=== PATIENT | female | born 1960 | race Caucasian/White ===

== ENCOUNTER 2017-06-23 14:21 | Emergency (ER) | payer OTHER ==
[~2017-06-23] VITALS: Ht 157.5 cm; Wt 69.0 kg
[~2017-06-23 14:21] MED LIST: ALL220TA PO; DARV PO
[2017-06-23 14:29] VITALS: BP 147/66; PULSE 67; RESP 18; TEMP 97.6; O2SAT 99
--- NOTE | 2017-06-23 16:48 | RADRPT ---
EXAM DATE/TIME: 06/23/2017 15:50 [place] COMPARISON: No previous studies available for comparison. INDICATIONS : Left shoulder pain since falling 2 weeks ago. MEDICAL HISTORY : None. SURGICAL HISTORY : None. ENCOUNTER: Initial ACUITY: 2 weeks PAIN SCORE: 5/10 LOCATION: Left shoulder. FINDINGS: There is a mildly comminuted fracture of the greater tuberosity of the humeral head. Approximately 2 mm of superior displacement noted. Other bones of the left shoulder are intact. CONCLUSION: Mildly comminuted and minimally displaced greater tuberosity fracture. Marvin Hdez MD on June 23, 2017 at 16:46 Board Certified Radiologist. This report was verified electronically.
--- NOTE | 2017-06-23 17:07 | PD ---
HPI Chief Complaint: Musculoskeletal Complaint Time Seen by Provider: 15:12 Travel History International Travel<30 days: No Contact w/Intl Traveler<30days: No Traveled to known affect area: No History of Present Illness HPI 56-year-old right-hand dominant female presents to the ED for evaluation of left shoulder pain. Onset approximately 2 weeks ago after the patient fell on a slippery tile floor directly landing on the shoulder. She states that there was bruising and pain of the arm that is increasingly improved. 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 He endorses limited range of motion, states that she cannot raise the arm beyond shoulder level. She denies numbness, tingling, weakness of the arm. She's never had an injury to the area before. PFSH Past Medical History Diminished Hearing: No Social History Alcohol Use: Yes (2 DRINKS PER DAY) Tobacco Use: No Substance Use: No Allergies-Medications (Allergen,Severity, Reaction): Coded Allergies: cephalexin (Verified Allergy, Intermediate, RASH& FACIAL EDEMA, 06/23/17) Reported Meds & Prescriptions Reported Meds & Active Scripts Active Tramadol (Tramadol HCl) 50 Mg Tab 50 Mg PO Q6H PRN Ibuprofen 800 Mg Tab 800 Mg PO Q8H 7 Days Review of Systems Except as stated in HPI: all other systems reviewed are Neg Physical Exam Narrative GENERAL: Well-nourished, well-developed white female in no acute distress. SKIN: Focused skin assessment warm/dry. HEAD: Normocephalic. EYES: No scleral icterus. No injection or drainage. NECK: Supple, trachea midline. No JVD or lymphadenopathy. CARDIOVASCULAR: Regular rate and rhythm without murmurs, gallops, or rubs. RESPIRATORY: Breath sounds equal bilaterally. No accessory muscle use. GASTROINTESTINAL: Abdomen soft, non-tender, nondistended. MUSCULOSKELETAL: No cyanosis, or edema. Focused left upper extremity exam: 2+ radial pulse. Tender to palpation of the head of the humerus. No pain elicited with external rotation. Neurovascularly intact. BACK: Nontender without obvious deformity. No CVA tenderness. Data Data Last Documented VS Vital Signs Date Time Temp Pulse Resp B/P (MAP) Pulse Ox O2 Delivery O2 Flow Rate FiO2 06/23/17 14:29 97.6 67 18 147/66 (93) 99 Orders Orders Shoulder, Complete (>2vws) (06/23/17 15:11) Ice/Cold Pack (06/23/17 15:11) Support Splint (06/23/17 17:08) Ibuprofen (Motrin) (06/23/17 17:15) MDM Medical Decision Making Medical Screen Exam Complete: Yes Emergency Medical Condition: Yes Differential Diagnosis Contusion versus musculoskeletal pain versus rotator cuff injury versus fracture versus other Narrative Course 56-year-old right-hand dominant female presents to the ED for evaluation of left shoulder pain. Onset approximately 2 weeks ago after the patient fell on a slippery tile floor directly landing on the shoulder. She states that there was bruising and pain of the arm that has improved with time. 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 He endorses limited range of motion, states that she cannot raise the arm beyond shoulder level. She denies numbness, tingling, weakness of the arm. Vitals reviewed. Physical exam reveals a nontoxic-appearing white female in no acute distress. There is some bruising of the mid shaft of the humerus but the focus left upper extremity exam is otherwise unremarkable. X-ray reveals chip fracture of the greater tuberosity of the proximal humerus. I discussed the case with Dr. Pitt. We will put the patient a sling, provide her with a short course of anti-inflammatories and pain medications, recommend follow-up with the orthopedist this week. The patient indicated understanding of instructions and is agreeable with the care plan. Patient is stable and discharged home. Diagnosis Primary Impression: Fracture of greater tuberosity of left humerus Qualified Codes: S42.255A - Nondisplaced fracture of greater tuberosity of left humerus, initial encounter for closed fracture Referrals: Khalif Steinberg MD Patient Instructions: General Instructions, Proximal Humerus Fracture (ED) Additional Instructions: Rest, ice, immobilize the extremity as possible. Apply ice no longer than 10-15 minutes per hour a few times a day. 800 mg ibuprofen up to 3 times a day as needed for pain. Tramadol as needed for pain greater than [address]. [address] while taking tramadol. Return to normal, gentle activity as tolerated. Follow-up with the orthopedist this week as discussed. Return to the ED for any urgent or emergent medical condition. Med/Other Pt SpecificInfo: Prescription(s) given Scripts Tramadol (Tramadol) 50 Mg Tab 50 MG PO Q6H Y for PAIN SCALE 6 TO 10, #15 TAB 0 Refills Prov: Deonna Israel MD 06/23/17 Ibuprofen (Ibuprofen) 800 Mg Tab 800 MG PO Q8H for 7 Days, TAB 0 Refills Prov: Deonna Israel MD 06/23/17 Disposition: 01 DISCHARGE HOME Condition: Stable Jessica Antunez Jun 23, 2017 17:07
[2017-06-23] MEDS ORDERED: IBUP800T23 PO (17:09)
[2017-06-23] MEDS ORDERED: TRAM50TA PO (17:09)
[2017-06-23] MEDS ORDERED: IBUPROFEN 800 MG TAB PO ONE (17:15)
== END 2017-06-23 17:34 | disposition home or self-care (01) ==
LOC: PHEFT 14:21
DX: S42.255A Nondisplaced fracture of greater tuberosity of left humerus, initial encounter for closed fracture (principal); W01.0XXA Fall on same level from slipping, tripping and stumbling without subsequent striking against object, initial encounter; Y99.8 Other external cause status
CPT/HCPCS: 73030; 99283